=== PATIENT | male | born 1965 | race Caucasian/White ===

== ENCOUNTER 2016-08-27 10:44 | Emergency (ER) | payer OTHER, BC ==
[2016-08-27 11:10] LABS: HEMOGLOBIN 16.7 gm/dl (14.0-17.5); RED BLOOD COUNT 5.04 M/UL (4.20-5.50); WHITE BLOOD COUNT 11.2 K/UL (4.5-11.0)
[2016-08-27 11:52] LABS: BUN/CREATININE RATIO 13 (0-10)
== END 2016-08-27 17:45 | disposition short-term general hospital (02) ==
LOC: ER1 10:44
PROVIDERS: Emergency Medicine
DX: S22.22XA Fracture of body of sternum, initial encounter for closed fracture (principal); R09.02 Hypoxemia; M25.512 Pain in left shoulder; Z21 Asymptomatic human immunodeficiency virus [HIV] infection status; V43.52XA Car driver injured in collision with other type car in traffic accident, initial encounter; Y93.89 Activity, other specified; Y92.410 Unspecified street and highway as the place of occurrence of the external cause
CPT/HCPCS: 36415; 70450; 70486; 71010; 71260; 72125; 73030; 80053; 83690; 84484; 85025; 85610; 85730; 90714; 93005; 96361; 96374; 96375; 99285; J2270; J2405; J7030; J7050; Q9962